=== PATIENT | female | born 1990 | race Hispanic/Latino ===

== ENCOUNTER 2023-04-10 10:18 | Emergency (ER) | payer BC ==
[~2023-04-10] VITALS: Ht 172.7 cm; Wt 82.6 kg
[2023-04-10 11:02] LABS: BASOPHILS # (AUTO) 0.04 K/uL (0.00-0.20); BASOPHILS % (AUTO) 0.5 % (0.0-5.0); EOSINOPHILS # (AUTO) 0.13 K/uL (0.00-0.70); EOSINOPHILS % (AUTO) 1.5 % (0.0-8.0); HEMATOCRIT 28.2 % (36-48); IMMATURE GRANULOCYTE ABSOLUTE 0.02 K/uL (0-1); LYMPHOCYTES # (AUTO) 2.1 K/uL (1.0-4.8); LYMPHOCYTES % (AUTO) 24.5 % (21.0-51.0); MEAN CORPUSCULAR HEMOGLOBIN 15.1 pg (27.0-33.0); MEAN CORPUSCULAR HGB CONC 25.5 g/dL (32.0-36.0); MONOCYTES # (AUTO) 0.5 K/uL (0.1-1.0); NEUTROPHILS # (AUTO) 5.8 K/uL (1.8-7.7); NEUTROPHILS % (AUTO) 67.3 % (40.0-77.0); PLATELET COUNT (AUTO) 423 K/uL (130-400); RED BLOOD CELL COUNT(AUTO) 4.78 MIL/uL (4.00-5.50); RED CELL DISTRIBUTION WIDTH 20.9 % (11.0-15.5); WHITE BLOOD COUNT (AUTO) 8.5 K/uL (4.8-10.8)
[2023-04-10 11:08] LABS: CREATININE 0.7 mg/dL (0.5-1.5); POTASSIUM 3.9 mmol/L (3.5-5.1)
[2023-04-10 11:13] LABS: ALBUMIN 3.1 g/dL (3.5-5.0); BILIRUBIN,TOTAL 0.2 mg/dL (0.2-1.0); TOTAL PROTEIN, SERUM 7.6 g/dL (6.0-8.3)
[2023-04-10 15:18] LABS: APPEARANCE,URINE CLEAR (CLEAR); BILIRUBIN,URINE NEGATIVE (NEGATIVE); COLOR,URINE YELLOW (YELLOW); GLUCOSE, URINE (UA) NEGATIVE (NEGATIVE); KETONES,URINE NEGATIVE (NEGATIVE); LEUKOCYTE ESTERASE ,URINE NEGATIVE Leu/uL (NEGATIVE); NITRATE,URINE NEGATIVE (NEGATIVE); OCCULT BLOOD,URINE NEGATIVE (NEGATIVE); PH,URINE 6.5 (5.0-8.0); PROTEIN,URINE NEGATIVE (NEGATIVE); UROBILINOGEN,URINE 0.2 mg/dL (0.2-1.0)
[2023-04-10 15:19] LABS: ADD UA MICROSCOPIC YES
[2023-04-10 15:20] LABS: HCG,QUALITATIVE URINE NEGATIVE (NEGATIVE)
[2023-04-10 15:30] LABS: BACTERIA,URINE Few /HPF (None Seen); RBC,URINE 0-1 /HPF (0-1); SQUAMOUS EPITHELIAL CELL,UR Few /HPF (0-2); WBC,URINE 0-1 /HPF (0-1)
[2023-04-10 20:02] LABS: HEMATOCRIT 28.6 % (36-48)
[2023-04-10 20:59] VITALS: BP 108/58; PULSE 73; RESP 18; O2SAT 99
== END 2023-04-10 21:01 | disposition home or self-care (01) ==
LOC: EDH 10:18
DX: D64.9 Anemia, unspecified (principal)
CPT/HCPCS: 99285; 36430; 80053; 85025; 85014; 85018; 86850; 86900; 86901; 86923; 81001; 81025; 36415; P9016

== ENCOUNTER 2024-02-19 18:15 | Inpatient (IN) | payer BC ==
[~2024-02-19] VITALS: Ht 172.7 cm; Wt 86.2 kg
[2024-02-19 19:18] LABS: APPEARANCE,URINE CLEAR (CLEAR); BILIRUBIN,URINE NEGATIVE (NEGATIVE); COLOR,URINE LIGHT-YELLOW (YELLOW); GLUCOSE, URINE (UA) NEGATIVE (NEGATIVE); KETONES,URINE NEGATIVE (NEGATIVE); LEUKOCYTE ESTERASE ,URINE 75 Leu/uL (NEGATIVE); NITRATE,URINE NEGATIVE (NEGATIVE); OCCULT BLOOD,URINE NEGATIVE (NEGATIVE); PH,URINE 6.5 (5.0-8.0); PROTEIN,URINE NEGATIVE (NEGATIVE); UROBILINOGEN,URINE 0.2 mg/dL (0.2-1.0)
[2024-02-19 19:21] LABS: ADD UA MICROSCOPIC YES
[2024-02-19 19:27] LABS: BACTERIA,URINE RARE /HPF (None Seen); MUCUS,URINE RARE LPF (None Seen); SQUAMOUS EPITHELIAL CELL,UR MOD /HPF (0-2)
[2024-02-19 19:43] LABS: BASOPHILS # (AUTO) 0.06 K/uL (0.00-0.20); BASOPHILS % (AUTO) 0.7 % (0.0-5.0); EOSINOPHILS # (AUTO) 0.16 K/uL (0.00-0.70); EOSINOPHILS % (AUTO) 1.7 % (0.0-8.0); IMMATURE GRANULOCYTE ABSOLUTE 0.02 K/uL (0-1); LYMPHOCYTES # (AUTO) 3.2 K/uL (1.0-4.8); LYMPHOCYTES % (AUTO) 35.3 % (21.0-51.0); MEAN CORPUSCULAR HEMOGLOBIN 22.8 pg (27.0-33.0); MEAN CORPUSCULAR HGB CONC 31.2 g/dL (32.0-36.0); MEAN CORPUSCULAR VOLUME 73.1 fL (79-99); MONOCYTES # (AUTO) 0.8 K/uL (0.1-1.0); MONOCYTES % (AUTO) 8.3 % (3.0-13.0); NEUTROPHILS # (AUTO) 4.9 K/uL (1.8-7.7); NEUTROPHILS % (AUTO) 53.8 % (40.0-77.0); PLATELET COUNT (AUTO) 282 K/uL (130-400); RED BLOOD CELL COUNT(AUTO) 5.88 MIL/uL (4.00-5.50); RED CELL DISTRIBUTION WIDTH 20.2 % (11.0-15.5); WHITE BLOOD COUNT (AUTO) 9.2 K/uL (4.8-10.8)
[2024-02-19] MEDS: 0.9%NACL 1000ML 1,000 ML IV ONE (19:43)
[2024-02-19] MEDS: MORPHINE 4 MG SYG IVP ONE ×2 (19:44→22:20)
[2024-02-19] MEDS: ONDANSETRON 4MG INJ IVP ONE (19:44)
[2024-02-19 20:02] LABS: CREATININE 0.6 mg/dL (0.5-1.0); POTASSIUM 4.3 mmol/L (3.5-5.1)
[2024-02-19 20:07] LABS: ALBUMIN 3.6 g/dL (3.5-5.0); BILIRUBIN,TOTAL 0.3 mg/dL (0.2-1.0)
[2024-02-19] MEDS ORDERED: IOHEXOL-350 75 ML VIAL IV ONE (20:16)
[2024-02-19] MEDS ORDERED: hydrALAZine 20MG/ML VIAL IV PRN (22:00)
[2024-02-19] MEDS ORDERED: acetaMINOPHEN 650 MG SUPPOSITORY RC PRN (22:00)
[2024-02-19] MEDS ORDERED: LACTULOSE 20 GM/30 ML UDCUP PO PRN (22:00)
[2024-02-19] MEDS ORDERED: TEMAZEPAM 15 MG CAPSULE PO PRN (22:00)
[2024-02-19] MEDS ORDERED: acetaMINOPHEN 325 MG TAB PO PRN (22:00)
[2024-02-19] MEDS: ZOSYN 3.375GM +NS 50ML IVPB ONE (22:22)
[2024-02-19] MEDS: LACTATED RINGERS 1000ML 1,000 ML IV SCH (22:22)
[2024-02-19 22:23] VITALS: O2SAT 97
[2024-02-19 23:25] VITALS: BP 125/83; PULSE 54; RESP 20
[2024-02-19] MEDS: ONDANSETRON 4MG INJ IVP PRN (23:35)
[2024-02-19] MEDS: MORPHINE 4 MG SYG IVP PRN (23:39)
[2024-02-20] VITALS (26 sets, daily range): BP systolic 87–124; BP diastolic 42–83; PULSE 48–61; RESP 11–20
[2024-02-20] MEDS: ZOSYN 3.375GM +NS 50ML IVPB SCH (06:24)
[2024-02-20 06:48] LABS: BASOPHILS # (AUTO) 0.06 K/uL (0.00-0.20); BASOPHILS % (AUTO) 0.9 % (0.0-5.0); EOSINOPHILS % (AUTO) 2.9 % (0.0-8.0); HEMATOCRIT 41.2 % (36-48); IMMATURE GRANULOCYTE ABSOLUTE 0.02 K/uL (0-1); LYMPHOCYTES # (AUTO) 2.8 K/uL (1.0-4.8); LYMPHOCYTES % (AUTO) 39.4 % (21.0-51.0); MEAN CORPUSCULAR HEMOGLOBIN 22.9 pg (27.0-33.0); MEAN CORPUSCULAR HGB CONC 30.8 g/dL (32.0-36.0); MEAN CORPUSCULAR VOLUME 74.4 fL (79-99); MONOCYTES # (AUTO) 0.7 K/uL (0.1-1.0); MONOCYTES % (AUTO) 9.5 % (3.0-13.0); NEUTROPHILS # (AUTO) 3.3 K/uL (1.8-7.7); PLATELET COUNT (AUTO) 239 K/uL (130-400); RED BLOOD CELL COUNT(AUTO) 5.54 MIL/uL (4.00-5.50); RED CELL DISTRIBUTION WIDTH 19.9 % (11.0-15.5)
[2024-02-20] MEDS ORDERED: 0.9%NACL 50ML IV SCH (07:00)
[2024-02-20 07:07] LABS: CREATININE 0.8 mg/dL (0.5-1.0); MAGNESIUM 1.6 mg/dL (1.80-2.40); PHOSPHORUS 4.5 mg/dL (2.5-4.9); POTASSIUM 3.5 mmol/L (3.5-5.1); THYROID STIMULATING HORMONE 11.84 uIU/mL (0.36-3.74)
[2024-02-20] MEDS: INSULIN humuLIN R 100 UNIT/ML 3ML SQ SCH (07:30)
[2024-02-20] MEDS: PANTOPRAZOLE 40 MG/VIAL IVP SCH (08:55)
[2024-02-20] MEDS ORDERED: proPOFol 10 MG/ML 20ML VIAL IV ONE (13:03)
[2024-02-20] MEDS ORDERED: rocuRONium bROMide 10MG/1ML 5ML VL ONE (13:03)
[2024-02-20] MEDS ORDERED: LIDOCAINE HCL MPF 1% 5ML VIAL ONE (13:03)
[2024-02-20] MEDS ORDERED: MIDAZOLAM HCL 1 MG/ML 2ML VIAL ONE (13:03)
[2024-02-20] MEDS ORDERED: FENTanyl CITRate PF 50 MCG/1 ML 2ML VIAL ONE ×2 (13:04→13:47)
[2024-02-20] MEDS ORDERED: ONDANSETRON 4MG INJ ONE (13:18)
[2024-02-20] MEDS: BUPIvacaine HCL/EPINEPHrine/PF 0.25% 10ML VIAL IJ ONE (13:36)
[2024-02-20] MEDS ORDERED: ePHEDrine SULFate 50 MG/ML AMPULE ONE (13:39)
[2024-02-20] MEDS ORDERED: GLYCOPYRROLATE 0.2 MG/ML 5 ML VIAL ONE (13:39)
[2024-02-20] MEDS ORDERED: KETOROLAC 30MG VIAL (30MG/ML) ONE (13:53)
[2024-02-20] MEDS ORDERED: NEOSTIGMINE METHYLSULFATE 1MG/ML IV ONE (13:53)
[2024-02-20] MEDS: MEPERIDINE-PF 25 MG/ML SYG ONE ×2 (14:58→15:13)
[2024-02-20] MEDS: ONDANSETRON 4MG INJ ONE (14:58)
[2024-02-20] MEDS: acetaMINOPHEN 1,000 MG/100 ML VIAL IV ONE (14:58)
[2024-02-20] MEDS: SUGAMMADEX SODIUM 200 MG/2 ML VIAL IV ONE (14:59)
[2024-02-20] MEDS: ZOSYN 3.375GM+NS 50ML 50 ML ONE (15:00)
[2024-02-20] MEDS: METOCLOPRAMIDE 10 MG/2 ML VIAL ONE (15:12)
[2024-02-20] MEDS: SIMETHICONE 80 MG TAB.CHEW PO SCH (17:00)
[2024-02-20] MEDS: traMADol HCL 50 MG TABLET PO PRN (22:18)
[2024-02-21 03:21] VITALS: BP 114/78; PULSE 58; RESP 20
[2024-02-21 07:30] VITALS: BP 103/59; PULSE 48; RESP 18
[2024-02-21] MEDS: doCUSate SODIUM 100 MG CAP PO PRN (09:06)
[2024-02-21] MEDS ORDERED: POTASSIUM CHLORIDE 20MEQ/100ML 100 ML IV PRN (10:30)
[2024-02-21 11:34] LABS: BASOPHILS # (AUTO) 0.02 K/uL (0.00-0.20); BASOPHILS % (AUTO) 0.2 % (0.0-5.0); HEMATOCRIT 37.7 % (36-48); IMMATURE GRANULOCYTE ABSOLUTE 0.07 K/uL (0-1); LYMPHOCYTES # (AUTO) 1.7 K/uL (1.0-4.8); LYMPHOCYTES % (AUTO) 13.1 % (21.0-51.0); MEAN CORPUSCULAR HEMOGLOBIN 22.7 pg (27.0-33.0); MEAN CORPUSCULAR HGB CONC 30.8 g/dL (32.0-36.0); MEAN CORPUSCULAR VOLUME 73.6 fL (79-99); MONOCYTES # (AUTO) 0.9 K/uL (0.1-1.0); MONOCYTES % (AUTO) 6.5 % (3.0-13.0); NEUTROPHILS # (AUTO) 10.5 K/uL (1.8-7.7); NEUTROPHILS % (AUTO) 79.7 % (40.0-77.0); PLATELET COUNT (AUTO) 249 K/uL (130-400); RED BLOOD CELL COUNT(AUTO) 5.12 MIL/uL (4.00-5.50); RED CELL DISTRIBUTION WIDTH 19.4 % (11.0-15.5); WHITE BLOOD COUNT (AUTO) 13.2 K/uL (4.8-10.8)
[2024-02-21 11:45] VITALS: BP 114/72; PULSE 63; RESP 18
[2024-02-21 11:55] LABS: CREATININE 0.7 mg/dL (0.5-1.0); POTASSIUM 3.6 mmol/L (3.5-5.1)
[2024-02-21 11:59] LABS: ALBUMIN 2.9 g/dL (3.5-5.0); BILIRUBIN,TOTAL 0.4 mg/dL (0.2-1.0); MAGNESIUM 1.5 mg/dL (1.80-2.40); TOTAL PROTEIN, SERUM 6.7 g/dL (6.0-8.3)
[2024-02-21] MEDS ORDERED: IOHEXOL-350 75 ML VIAL IV ONE (15:39)
[2024-02-21 16:00] VITALS: BP 133/75; PULSE 57; RESP 22
[2024-02-21] MEDS: MAGNESIUM 2GM PREMIX 50ML 50 ML IV PRN (19:06)
[2024-02-21] MEDS: KCL 20 MEQ ERTAB PO PRN (19:07)
[2024-02-21 19:40] VITALS: BP 117/77; PULSE 63; RESP 20
[2024-02-21] MEDS: POTASSIUM CHLORIDE 10% ELIXIR 20 MEQ/15 ML UDCUP PO PRN (20:28)
[2024-02-21] MEDS ORDERED: hydroMORPHone 0.5 MG SYG (0.5MG/0.5ML) IVP PRN (23:00)
[2024-02-21 23:44] VITALS: BP 104/59; PULSE 56; RESP 18
[2024-02-22] MEDS: hydroMORPHone 0.5 MG SYG (0.5MG/0.5ML) IVP ONE (02:14)
[2024-02-22 03:42] VITALS: BP 105/61; PULSE 54; RESP 18
[2024-02-22] MEDS: LEVOTHYROXINE 25 MCG TABLET PO SCH (06:32)
[2024-02-22 07:52] VITALS: BP 116/75; PULSE 54; RESP 16
[2024-02-22 09:13] LABS: BASOPHILS # (AUTO) 0.03 K/uL (0.00-0.20); BASOPHILS % (AUTO) 0.4 % (0.0-5.0); EOSINOPHILS # (AUTO) 0.07 K/uL (0.00-0.70); EOSINOPHILS % (AUTO) 0.9 % (0.0-8.0); IMMATURE GRANULOCYTE ABSOLUTE 0.02 K/uL (0-1); LYMPHOCYTES # (AUTO) 3.1 K/uL (1.0-4.8); LYMPHOCYTES % (AUTO) 37.8 % (21.0-51.0); MEAN CORPUSCULAR HEMOGLOBIN 22.7 pg (27.0-33.0); MEAN CORPUSCULAR HGB CONC 30.3 g/dL (32.0-36.0); MEAN CORPUSCULAR VOLUME 75.1 fL (79-99); MONOCYTES # (AUTO) 0.6 K/uL (0.1-1.0); MONOCYTES % (AUTO) 7.3 % (3.0-13.0); NEUTROPHILS # (AUTO) 4.4 K/uL (1.8-7.7); NEUTROPHILS % (AUTO) 53.4 % (40.0-77.0); PLATELET COUNT (AUTO) 230 K/uL (130-400); RED BLOOD CELL COUNT(AUTO) 4.93 MIL/uL (4.00-5.50); RED CELL DISTRIBUTION WIDTH 19.6 % (11.0-15.5); WHITE BLOOD COUNT (AUTO) 8.2 K/uL (4.8-10.8)
[2024-02-22 09:23] LABS: ALBUMIN 2.9 g/dL (3.5-5.0); BILIRUBIN,TOTAL 0.2 mg/dL (0.2-1.0); CREATININE 0.8 mg/dL (0.5-1.0); TOTAL PROTEIN, SERUM 6.6 g/dL (6.0-8.3)
[2024-02-22 12:00] VITALS: BP 110/75; PULSE 62; RESP 16
[2024-02-22] MEDS ORDERED: ACET-2079 PO (12:12)
[2024-02-22] MEDS: IBUPROFEN 600 MG TABLET PO ONE (12:30)
[2024-02-22] MEDS: LIDOCAINE 4% ADH..PATCH TP ONE (12:47)
[2024-02-22] MEDS: LIDOCAINE 4% ADH..PATCH TP SCH (12:51)
[2024-02-22] MEDS: KETOROLAC 30MG VIAL (30MG/ML) IVP PRN (12:51)
[2024-02-23] MEDS ORDERED: LIDOCAINE 4% ADH..PATCH TP SCH (09:00)
== END 2024-02-22 15:25 | disposition home or self-care (01) | DRG 398 ==
LOC: EDH 18:15 → EDHIP 21:33 → WSH 22:48
PROVIDERS: ADMIT Internal Medicine; ATTEND Internal Medicine
PROC: 0DTJ4ZZ Resection of Appendix, Percutaneous Endoscopic Approach (ICD-10-PCS; principal; 2024-02-20 13:06)
DX: K35.890 Other acute appendicitis without perforation or gangrene (principal); N30.00 Acute cystitis without hematuria; D64.9 Anemia, unspecified; E03.9 Hypothyroidism, unspecified; E83.42 Hypomagnesemia; E83.52 Hypercalcemia; G89.29 Other chronic pain; K90.0 Celiac disease; N20.0 Calculus of kidney; N80.9 Endometriosis, unspecified; Z83.3 Family history of diabetes mellitus; Z90.710 Acquired absence of both cervix and uterus; Z90.721 Acquired absence of ovaries, unilateral
CPT/HCPCS: 36415; 74177; 74178; 80048; 80053; 81001; 83690; 83735; 84100; 84132; 84443; 85025; 87086; 88304; 96361; 96374; A4344; J1170; J1885; J2175; J2250; J2270; J2405; J2470; J2543; J2704; J2710; J2765; J3010; J3475; J3490; J7030; J7120; Q9967; A4215; A4216; A4222; A4223; A4600; A4649; C1713; G0168